=== PATIENT | female | born 1940 | race Caucasian/White ===

== ENCOUNTER → 2021-04-08 16:43 | Outpatient (CLI) | payer MEDICARE, SELFPAY ==
[2019-08-13 14:53] VITALS: BMI 34.9
--- NOTE | 2021-04-08 16:48 | RAD_ITS ---
INDICATION: BACK PAIN EXAMINATION/TECHNIQUE: X-RAY - XR Spine Lumbar 2 or 3 Views COMPARISON: 07/28/2016 FINDINGS: VERTEBRAE: Preserved vertebral body height. No fracture. There is 5 mm retrolisthesis L2 on L3. 3 mm retrolisthesis L3 on L4. 4 mm anterolisthesis L5 on S1. Preservation of the normal lumbar lordosis. Moderate multilevel facet arthropathy. Posterior fusion of L4-5 with L3-L5 laminectomies. DISCS: Moderate to severe multilevel degenerative disc disease and spondylosis. INCLUDED ABDOMEN: Included bowel gas pattern is non-obstructive. Vascular calcifications. RAD/Lumbar Spine 2 or 3 Views IMPRESSION: Multilevel grade 1 spondylolisthesis as described above. 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 Posterior fusion of L4-5 with L3-L5 laminectomies. Electronically Signed: Yung Curry MD at 20:56 EDT Tel , Service support ,
== END ==
PROVIDERS: PCP Family Medicine; Referring Provider Anesthesiology Pain Medicine; Visit Provider Anesthesiology Pain Medicine
DX: M54.9 Dorsalgia, unspecified (principal)
CPT/HCPCS: 72100

== ENCOUNTER → 2021-06-28 14:00 | Outpatient (CLI) | payer MEDICARE, SELFPAY ==
[2019-08-13 14:53] VITALS: BMI 34.9
--- NOTE | 2021-06-28 14:08 | RAD_ITS ---
STUDY: X-RAY - THORACIC SPINE REASON FOR EXAM: Female, 81 years old. Fall. Pain. TECHNIQUE: 3 view(s) of the thoracic spine were obtained. COMPARISON: None. FINDINGS: Diffuse osteopenia. Diffuse intervertebral disc space narrowing with moderate osteophyte formation. Marked vascular calcification. RAD/Thoracic Spine 3 Views IMPRESSION: Osteopenia with diffuse moderate thoracic spondylosis. No acute finding identified. Electronically Signed: Porfirio Jarrett MD at 9:28 EDT , Service support ,
--- NOTE | 2021-06-28 14:08 | RAD_ITS ---
STUDY: X-RAY - LUMBAR SPINE REASON FOR EXAM: Female, 81 years old. Fall. Pain. TECHNIQUE: 3 view(s) of the lumbar spine were obtained. COMPARISON: 04/08/2021. FINDINGS: Osteopenia. Posterior fusion with laminectomies from L3 to S1. Stable bone grafting. No complicating features. 9 mm of anterolisthesis of L3 on L2, unchanged. Marked disc degeneration at L1-2, L2-3, L3-4 and L5-S1 with vacuum phenomenon at L2-3 and L5-S1, all unchanged. Marked vascular calcification. RAD/Lumbar Spine 2 or 3 Views IMPRESSION: Stable osteopenia, fusion at L4-5 and diffuse moderate lumbar spondylosis. No acute abnormality. Electronically Signed: Porfirio Jarrett MD at 9:27 EDT , Service support ,
== END ==
PROVIDERS: PCP Family Medicine; Referring Provider Anesthesiology Pain Medicine; Visit Provider Anesthesiology Pain Medicine
DX: M85.88 Other specified disorders of bone density and structure, other site (principal); M47.814 Spondylosis without myelopathy or radiculopathy, thoracic region; M47.816 Spondylosis without myelopathy or radiculopathy, lumbar region
CPT/HCPCS: 72072; 72100

== ENCOUNTER 2022-07-27 16:46 | Outpatient (CLI) | payer MEDICARE, SELFPAY ==
[2022-07-27 16:56] VITALS: BP 129/100; PULSE 96; RESP 20; TEMP 36.6; O2SAT 96; BMI 29.0
[2022-07-27] MEDS: 0.9% Saline Lock 10 ML Syringe IV ×3 (17:21→17:43)
[2022-07-27] MEDS: BEBTELOVIMAB 175 MG/2 ML VIAL IV (17:23)
[2022-07-27] MEDS: DiphenhydrAMINE 50 MG/ML Syringe IV (17:41)
[2022-07-27] MEDS: MethylPREDNISolone 125 MG/2 ML Vial IV (17:42)
--- NOTE | 2022-07-27 17:47 | NURSING ---
Patient developed SOB, back and belly pain. Jacky was called. gave benadryl and then Solumedrol Dr. Aguirre reponded to jacky and felt she was ok given those two medications. Pulse ox 95-99. Bp 150/108 pulse 100-120. 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 Patient started to feel some relief after 10 minutes with just a little aching still in her back.
[2022-07-27 17:55] VITALS: BP 156/98; PULSE 113; RESP 22; TEMP 36.7; O2SAT 99
[2022-07-27 18:35] VITALS: BP 138/101; PULSE 104; RESP 20; TEMP 36.8; O2SAT 96
--- NOTE | 2022-07-27 18:43 | NURSING ---
Benadryl was given at 1730 and solumedrol at 1736. Patients symptoms did resolve and was discharged home at 1840.
== END 2022-07-27 18:40 | disposition home or self-care (01) ==
LOC: MS3OUT 16:46 → MS2 16:47
PROVIDERS: PCP Family Medicine; Referring Provider Nurse Practitioner Acute Care; Visit Provider Nurse Practitioner Acute Care
DX: Z23 Encounter for immunization (principal); U07.1 COVID-19
CPT/HCPCS: M0222; Q0222; A4216

== ENCOUNTER → 2024-01-10 | Outpatient (CLI) | payer MEDICARE, SELFPAY ==
[2024-01-10 16:07] LABS: Amphetamine Urine VISTA NEGATIVE (<1000 ng/mL); Barbiturate Urine VISTA NEGATIVE (< 200 ng/mL); Benzodiazepine Urine VISTA NEGATIVE (< 200 ng/mL); Cocaine Urine VISTA NEGATIVE (< 300 ng/mL); Ecstacy Urine VISTA NEGATIVE (< 500 ng/mL); Methadone Urine VISTA NEGATIVE (< 300 ng/mL); PCP Urine VISTA NEGATIVE (< 25 ng/mL); THC Urine VISTA NEGATIVE (< 50 ng/mL); Vista UDS pH Range 5
== END | disposition home or self-care (01) ==
LOC: LAB 14:12
PROVIDERS: PCP Family Medicine; Referring Provider Anesthesiology Pain Medicine; Visit Provider Anesthesiology Pain Medicine
DX: F11.20 Opioid dependence, uncomplicated (principal)
CPT/HCPCS: 80307